=== PATIENT | female | born 1975 | race Caucasian/White ===

== ENCOUNTER → 2020-06-29 14:37 | Outpatient (CLI) | payer BC, SELFPAY ==
--- NOTE | 2020-06-29 14:44 | US_ITS ---
PROCEDURE: US THYROID CLINICAL INDICATION: THYROID NODULE COMPARISON: No exams were available for comparison FINDINGS: Right lobe: 0.9cm x 3.4cm x 1.6cm Left lobe: 0.9cm x 3.7cm x 1.3cm Isthmus: Unremarkable Additional findings: There is a 4 mm mixed cystic nodule in the mid polar region on the right. In the lower pole there is a 5 mm hypoechoic nodule not well-circumscribed wider than tall without calcifications. There may be some slight enhanced through transmission of sound. No nodules are evident on the left. IMPRESSION: Hypoechoic possibly cystic nodule at 5 mm lower pole on the right. If there are old studies, suggest a be submitted for comparison. No old exams are available at this institution. If no old studies are available then would recommend a six-month follow-up. Dictated by: Pradip Corrales MD 06/30/2020 09:07 Pradip Corrales MD in [place] 06/30/2020 09:07
== END ==
PROVIDERS: PCP Family Medicine; Visit Provider Nurse Practitioner Family
DX: E04.1 Nontoxic single thyroid nodule (principal)
CPT/HCPCS: 76536

== ENCOUNTER → 2021-08-20 14:34 | Outpatient (CLI) | payer BC, SELFPAY ==
--- NOTE | 2021-08-20 14:39 | CT_ITS ---
PROCEDURE: CT ABDOMEN PELVIS WO CON CLINICAL INDICATION: RT FLANK PAIN, MICROSCOPIC HEMATURIA COMPARISON: CT ABDPELW/O CT ABD PELVIS W/O CONTRAST from 01/12/2015 TECHNIQUE: Axial images obtained with sagittal and coronal reformats. All CT scans at the facility use one or more dose reduction, viz: automated exposure control, ma/kV adjustment per patient size (including targeted exams where dose is matched to indication, i.e. head), or iterative reconstruction technique. FINDINGS: LOWER THORAX: No acute finding ABDOMEN & PELVIS: The liver, spleen, pancreas, adrenal glands, show no acute finding. No intestinal obstruction or free air. No evidence of appendicitis or diverticulitis. Osseous structures appear unremarkable. There is mild right hydronephrosis, stable from prior study with no perinephric fluid or inflammatory change. The ureter is not dilated however there is trace haziness involving the mid ureter. No ureteral stones on the right are identified. No bladder stones are identified. The bladder appears unremarkable. There are uterine fibroids. There is fluid in the endometrial cavity or endometrial thickening which should be correlated with patient's menopausal status and is abnormal in a postmenopausal woman.. IMPRESSION: 1. Mild stable right hydronephrosis. 2. Trace inflammatory change around the mid ureter without evidence of ureteral or bladder stones. 3. Uterine fibroids. 4. Endometrial thickening or fluid in the endometrial cavity, which is abnormal in a postmenopausal woman. Correlate with menopause status and if postmenopausal, referral to sql database programmer is recommended. Dictated by: Katharine Keita MD 08/20/2021 15:29 Katharine Keita MD in [facility] 08/20/2021 15:29
== END ==
PROVIDERS: PCP Family Medicine; Visit Provider Family Medicine
DX: R10.9 Unspecified abdominal pain (principal); R31.29 Other microscopic hematuria
CPT/HCPCS: 74176

== ENCOUNTER → 2021-11-07 09:38 | Outpatient (CLI) | payer BC, SELFPAY | PROVIDERS: Visit Provider Nurse Practitioner | DX: Z20.822 Contact with and (suspected) exposure to COVID-19 (principal) | CPT/HCPCS: C9803; U0003; U0005 ==

== ENCOUNTER 2024-07-15 13:22 | Outpatient (CLI) | payer BC, SELFPAY ==
--- NOTE | 2024-07-15 13:26 | US_ITS ---
FINAL REPORT CLINICAL HISTORY: follow up COMPARISON: 05/29/2020 FINDINGS: THYROID ULTRASOUND: The right lobe of the thyroid gland measures 3.6 cm in length. There are 2 nodules present in the right thyroid gland. The larger nodule appears to be mostly cystic with a few small macrocalcifications in the periphery, measuring up to 8 mm in greatest diameter. This is a TI-RADS category 2 nodule. There is a smaller mixed cystic and solid nodule measuring up to 6 mm in greatest diameter, a TI-RADS category 3 nodule. These nodules are similar to those seen on the prior ultrasound of 2019. No new nodules are noted in the right lobe of the thyroid. The left lobe of the thyroid measures 3.5 cm in length. No nodules are identified in the left lobe of the thyroid gland. The isthmus measures 2 mm in thickness. IMPRESSION: 2 nodules in the right lobe of the thyroid gland, essentially stable in appearance since the prior ultrasound of 2019. No follow-up is required at this time according to TI-RADS criteria. Reviewed, Interpreted and Dictated by Marbin France MD Transcribed by Melanie Choi Authenticated and [facility]
== END 2024-07-15 23:59 | disposition home or self-care (01) ==
LOC: RAD 13:23
PROVIDERS: PCP Family Medicine; Visit Provider Nurse Practitioner
DX: E04.1 Nontoxic single thyroid nodule (principal)
CPT/HCPCS: 76536